=== PATIENT | male | born 1950 | race Caucasian/White ===

== ENCOUNTER → 2017-10-03 12:03 | Outpatient (CLI) | payer MEDICARE, MEDICAID, SELFPAY ==
--- NOTE | 2017-10-04 14:44 | PT.OIE ---
Current Diagnoses Hemiplegia and hemiparesis following cerebral infarction affecting right dominant side (10/03/17) Provider Visit Care Team Role Provider Type Collin Delacruz MD Attending Provider Non-Staff Primary Care Provider Specialty: Medical Address: [facility] [address], [place], [address] Email: Physical Therapy Initial Evaluation PT-OP-A Visit Information Start: 10/04/17 14:39 Freq: Status: Active Protocol: Document 10/03/17 13:00 IJS (Rec: 10/04/17 14:44 IJS [id number]) Out-Patient Physical Therapy Visit Information Visit Information Visit Type Initial Evaluation Visit Note Patient was seen for a wheelchair evaluation s/p CVA with right hemiparesis. Please see the paper chart for the evaluation write up. 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
--- NOTE | 2017-10-04 17:06 | PT.OPPN ---
Current Diagnoses Hemiplegia and hemiparesis following cerebral infarction affecting right dominant side (10/03/17) Physical Therapy Progress Note PT-OP-A Visit Information Start: 10/04/17 14:39 Freq: Status: Active Protocol: Document 10/04/17 17:04 S (Rec: 10/04/17 17:06 [facility] [id number]) Out-Patient Physical Therapy Visit Information Visit Information Visit Type Treatment Note Visit Note Patient fit and instructed in crutch training WBAT right LE. Discussed axillary pressure precautions. He declined to practice stairs as he has two rails he can hold to get into the house. Safe for d/c home with family and crutches.
== END ==
PROVIDERS: PCP Family Medicine; Visit Provider Family Medicine
DX: I69.351 Hemiplegia and hemiparesis following cerebral infarction affecting right dominant side (principal)
CPT/HCPCS: 97116; 97161; 97542